=== PATIENT | female | born 1990 | race Caucasian/White ===

== ENCOUNTER 2019-12-23 15:19 | Outpatient (RCR) | payer OTHER, SELFPAY | END 2020-03-20 23:59 | disposition home or self-care (01) | LOC: ANHLAB 15:19 | PROVIDERS: PCP Family Medicine; Visit Provider Obstetrics & Gynecology | DX: O20.0 Threatened abortion (principal); Z3A.00 Weeks of gestation of pregnancy not specified | CPT/HCPCS: 36415; 84702 ==

== ENCOUNTER 2020-08-17 15:32 | Outpatient (RCR) | payer OTHER, SELFPAY ==
[2020-07-13 08:56] VITALS: BP 116/70; PULSE 85
[2020-08-10 08:47] VITALS: BP 107/64; PULSE 93
[2020-08-17 16:17] VITALS: BP 120/67; PULSE 67
== END 2020-08-24 07:28 | disposition home or self-care (01) ==
LOC: ANHOBOP 15:32
PROVIDERS: PCP Family Medicine; Visit Provider Obstetrics & Gynecology
DX: O99.213 Obesity complicating pregnancy, third trimester (principal); E66.9 Obesity, unspecified; Z3A.34 34 weeks gestation of pregnancy; Z3A.38 38 weeks gestation of pregnancy; Z3A.39 39 weeks gestation of pregnancy
CPT/HCPCS: 59025

== ENCOUNTER 2020-08-22 19:27 | Inpatient (IN) | payer OTHER, SELFPAY ==
[2020-08-22] VITALS (10 sets, daily range): BP systolic 109–129; BP diastolic 68–80; PULSE 70–99; RESP 16; TEMP 36.3–36.9
--- OUTSIDE RECORDS SUMMARY | 2020-08-22 19:57 | XMS_ITS | Encounter Summary ---
:1990 Author Care Team Providers Name Role Phone Jhon Orourke MD Primary Care Provider [phone] Reason for Visit None recorded. Assessment and Plan 1. Maternal obesity complicating , childbirth and the puerperium, antepartum ? non-stress test Discussion Note: None recorded.Patient educational handouts: No information available. Plan of Care Reminders Provider Appointments Nst Nst, , EQ UIP 08/24/2020 8:30AM ? Nst Nst, , EQUI P 08/28/2020 9:30AM ? U/s Ob Ultrasound , TECH Growth 08/28/2020 10:00AM ? Ob Routine Robina Cabral 08/28/2020 MD [place] 10:45AM Lab None ? ? recorded. Referral None ? ? recorded. Procedures None ? ? recorded. Surgeries None ? ? recorded. Imaging Non-stress [place] Test 07/27/2020 Medications Name Start Date ? ? citalopram 20 mg tablet ? TAKE 1 TABLET BY MOUTH ONCE DAILY levothyroxine ?
--- OUTSIDE RECORDS SUMMARY | 2020-08-22 19:57 | XMS_ITS | Encounter Summary ---
:1990 Author Care Team Providers Name Role Phone Jhon Orourke MD Primary Care Provider [phone] Reason for Visit None recorded. Assessment and [...] ? recorded. Imaging Non-stress [place] Test 08/03/2020 Medications Name Start Date ? ? citalopram 20 mg tablet ? TAKE 1 TABLET BY MOUTH ONCE DAILY levothyroxine ?
--- OUTSIDE RECORDS SUMMARY | 2020-08-22 19:57 | XMS_ITS | Encounter Summary ---
:1990 Author Care Team Providers Name Role Phone Jhon Orourke MD Primary Care Provider [phone] Reason for Visit OB visit Assessment and Plan 1. Hypothyroidism in ? TSH, serum or plasma 2. Maternal obesity complicating , childbirth and the puerperium, antepartum Discussion Note: None recorded.Patient educational handouts: No information available. Plan of Care Reminders Provider Appointments Nst Nst, , EQ UIP 08/24/2020 8:30AM ? Nst Nst, , EQUI P 08/28/2020 9:30AM ? U/s Ob Ultrasound , TECH Growth 08/28/2020 10:00AM ? Ob Routine Robina Montgomery, 08/28/2020 10:45AM Lab TSH, Serum Pathgr oup -PSC or Plasma 08/07/[address] [facility] ([facility] ) Referral None ? ? recorded. Procedures None ? ? recorded. Surgeries None ? ? recorded. Imaging None ? ? recorded. Medications
--- OUTSIDE RECORDS SUMMARY | 2020-08-22 19:57 | XMS_ITS | Encounter Summary ---
:1990 Author Care Team Providers Name Role Phone Jhon Orourke MD Primary Care Provider [phone] Reason for Visit OB visit 36w4d Assessment and Plan 1. Routine care Discussion Note: None recorded.Patient educational handouts: No [...] recorded. Imaging None ? ? recorded. Medications Name Start Date ? ? citalopram 20 mg tablet ? TAKE 1 TABLET BY MOUTH ONCE DAILY levothyroxine ? ? Medications Administered None recorded. Vitals Height Weight BMI Blood Pressure 5 ft 5 in
--- OUTSIDE RECORDS SUMMARY | 2020-08-22 19:57 | XMS_ITS | Encounter Summary ---
:1990 Author Care Team Providers Name Role Phone Jhon Orourke MD Primary Care Provider [phone] Reason for Visit None recorded. Assessment and [...] ? recorded. Imaging Non-stress [place] Test 07/20/2020 Medications Name Start Date ? ? citalopram 20 mg tablet ? TAKE 1 TABLET BY MOUTH ONCE DAILY levothyroxine ?
--- OUTSIDE RECORDS SUMMARY | 2020-08-22 19:57 | XMS_ITS | Encounter Summary ---
:1990 Author Care Team Providers Name Role Phone Jhon Orourke MD Primary Care Provider [phone] Reason for Visit None recorded. Assessment and [...] ? recorded. Imaging Non-stress [place] Test 07/24/2020 Medications Name Start Date ? ? citalopram 20 mg tablet ? TAKE 1 TABLET BY MOUTH ONCE DAILY levothyroxine ?
--- OUTSIDE RECORDS SUMMARY | 2020-08-22 19:57 | XMS_ITS | Encounter Summary ---
:1990 Author Care Team Providers Name Role Phone Jhon Orourke MD Primary Care Provider [phone] Reason for Visit OB visit 34w3d Assessment and Plan 1. Routine care Discussion [...]
--- OUTSIDE RECORDS SUMMARY | 2020-08-22 19:57 | XMS_ITS | Encounter Summary ---
:1990 Author Care Team Providers Name Role Phone Jhon Orourke MD Primary Care Provider [phone] Reason for Visit Patient is here for NST [id number] EDC 08/24 Assessment and Plan 1. Maternal obesity complicating [...] ? recorded. Imaging Non-stress [place] Test 08/07/2020 Medications Name Start Date ? ? citalopram 20 mg tablet ? TAKE 1 TABLET BY MOUTH ONCE DAILY levothyroxine
--- OUTSIDE RECORDS SUMMARY | 2020-08-22 19:57 | XMS_ITS | Encounter Summary ---
:1990 Author Care Team Providers Name Role Phone Jhon Orourke MD Primary Care Provider [phone] Reason for Visit None recorded. Assessment and [...] ? recorded. Imaging Non-stress [place] Test 07/31/2020 Medications Name Start Date ? ? citalopram 20 mg tablet ? TAKE 1 TABLET BY MOUTH ONCE DAILY levothyroxine ?
--- OUTSIDE RECORDS SUMMARY | 2020-08-22 19:57 | XMS_ITS | Encounter Summary ---
:1990 Author Care Team Providers Name Role Phone Jhon Orourke MD Primary Care Provider [phone] Reason for Visit OB visit 39w4d Assessment and Plan 1. Routine care Discussion [...]
--- OUTSIDE RECORDS SUMMARY | 2020-08-22 19:57 | XMS_ITS | Encounter Summary ---
:1990 Author Care Team Providers Name Role Phone Jhon Orourke MD Primary Care Provider [phone] Reason for Visit OB visit Assessment and Plan 1. Routine care 2. Maternal obesity complicating , childbirth and [...]
--- OUTSIDE RECORDS SUMMARY | 2020-08-22 19:57 | XMS_ITS | Encounter Summary ---
:1990 Author Care Team Providers Name Role Phone Jhon Orourke MD Primary Care Provider [phone] Reason for Visit None recorded. Assessment and Plan 1. Maternal obesity complicating , childbirth and the puerperium, antepartum ? US, obstetric, follow-up Discussion Note: None recorded.Patient educational handouts: No [...] recorded. Surgeries None ? ? recorded. Imaging US, [place] [facility], Follow-up 07/31/2020 Medications Name Start Date ? ? citalopram 20 mg tablet ? TAKE 1 TABLET BY MOUTH ONCE DAILY levothyroxine ?
--- OUTSIDE RECORDS SUMMARY | 2020-08-22 19:57 | XMS_ITS | Encounter Summary ---
:1990 Author Care Team Providers Name Role Phone Jhon Orourke MD Primary Care Provider [phone] Reason for Visit None recorded. Assessment and [...] ? recorded. Imaging Non-stress [place] Test 08/14/2020 Medications Name Start Date ? ? citalopram 20 mg tablet ? TAKE 1 TABLET BY MOUTH ONCE DAILY levothyroxine ?
--- OUTSIDE RECORDS SUMMARY | 2020-08-22 19:57 | XMS_ITS ---
:1990 Author Care Team Providers Name Role Phone YOUSIF LUNA MD Primary Care Provider [phone] Allergies Code Code System Name Reaction Severity Status Onset NKDA ? Medications Name Status Start Date Stop Date ? ? acetaminophen 300 mg-codeine 30 mg Completed ? 02/10/2020 tablet amoxicillin 500 mg capsule Completed ? 07/17 cephalexin 500 mg capsule Completed ? 2019 citalopram Completed ? 07/03/2020 citalopram 20 mg tablet Active ? Not avai lable TAKE 1 TABLET BY MOUTH ONCE DAILY levothyroxine Active ? Not available levothyroxine 50 mcg tablet Completed ? 01/17 Active ? Not available Din-Qh-Svjmmizs 0.18 mg/0.215 mg/0.25 Completed ? 02/10/2020 mg-25 mcg tablet Problems Name Status Onset Date Source ? Active 02/10/2020 ? Procedures Date Name Performed by ? 12/30/2019 US, Obstetric, Transvaginal [place] [address] [place] [address] ([address]) 01/11/2020 US, Obstetric, [place]aginal [place] [address] ([address]) 02/10/2020 US, Obstetric, Nuchal Translucency [place]
--- OUTSIDE RECORDS SUMMARY | 2020-08-22 19:57 | XMS_ITS | Encounter Summary ---
:1990 Author Care Team Providers Name Role Phone Jhon Orourke MD Primary Care Provider [phone] Reason for Visit OB visit 38w4d Assessment and Plan 1. Routine care Discussion [...]
--- OUTSIDE RECORDS SUMMARY | 2020-08-22 19:57 | XMS_ITS | Encounter Summary ---
:1990 Author Care Team Providers Name Role Phone Jhon Orourke MD Primary Care Provider [phone] Reason for Visit None recorded. Assessment and [...] ? recorded. Imaging Non-stress [place] Test 08/21/2020 Medications Name Start Date ? ? citalopram 20 mg tablet ? TAKE 1 TABLET BY MOUTH ONCE DAILY levothyroxine ?
--- OUTSIDE RECORDS SUMMARY | 2020-08-22 19:58 | XMS_ITS | Encounter Summary ---
:1990 Author Care Team Providers Name Role Phone Jhon Orourke MD Primary Care Provider [phone] Reason for Visit OB visit Assessment and Plan 1. Maternal obesity complicating , childbirth and the puerperium, antepartum 2. Routine care Discussion Note: None recorded.Patient educational [...]
--- OUTSIDE RECORDS SUMMARY | 2020-08-22 19:58 | XMS_ITS | Encounter Summary ---
:1990 Author Care Team Providers Name Role Phone Jhon Orourke MD Primary Care Provider [phone] Reason for Visit None recorded. Assessment and [...] ? recorded. Imaging Non-stress [place] Test 07/03/2020 Medications Name Start Date ? ? citalopram 20 mg tablet ? TAKE 1 TABLET BY MOUTH ONCE DAILY levothyroxine ?
--- OUTSIDE RECORDS SUMMARY | 2020-08-22 19:58 | XMS_ITS | Encounter Summary ---
:1990 Author Care Team Providers Name Role Phone Jhon Orourke MD Primary Care Provider [phone] Reason for Visit None recorded. Assessment and [...] ? recorded. Imaging Non-stress [place] Test 07/10/2020 Medications Name Start Date ? ? citalopram 20 mg tablet ? TAKE 1 TABLET BY MOUTH ONCE DAILY levothyroxine ?
--- OUTSIDE RECORDS SUMMARY | 2020-08-22 19:58 | XMS_ITS | Encounter Summary ---
:1990 Author Care Team Providers Name Role Phone Jhon Orourke MD Primary Care Provider [phone] Reason for Visit None recorded. Assessment and [...] Surgeries None ? ? recorded. Imaging US, [facility] [place] [facility], Follow-up 07/03/2020 Medications Name Start Date ? ? citalopram 20 mg tablet ? TAKE 1 TABLET BY MOUTH ONCE DAILY levothyroxine ?
--- OUTSIDE RECORDS SUMMARY | 2020-08-22 19:58 | XMS_ITS | Encounter Summary ---
:1990 Author Care Team Providers Name Role Phone Jhon Orourke MD Primary Care Provider [phone] Reason for Visit None recorded. Assessment and [...] Surgeries None ? ? recorded. Imaging US, [place] [facility], Follow-up 05/29/2020 Medications Name Start Date ? ? citalopram 20 mg tablet ? TAKE 1 TABLET BY MOUTH ONCE DAILY levothyroxine ?
--- OUTSIDE RECORDS SUMMARY | 2020-08-22 19:58 | XMS_ITS | Encounter Summary ---
:1990 Author Care Team Providers Name Role Phone Jhon Orourke MD Primary Care Provider [phone] Reason for Visit OB visit 31wks 4days Assessment and Plan 1. Routine care Discussion [...]
--- OUTSIDE RECORDS SUMMARY | 2020-08-22 19:58 | XMS_ITS | Encounter Summary ---
:1990 Author Care Team Providers Name Role Phone Jhon Orourke MD Primary Care Provider [phone] Reason for Visit OB visit Assessment and Plan Assessment Note Patient is ___weeks . Discu ssed plan. 1. Routine care Discussion Note: None recorded.Patient [...]
--- OUTSIDE RECORDS SUMMARY | 2020-08-22 19:58 | XMS_ITS | Encounter Summary ---
:1990 Author Care Team Providers Name Role Phone Jhon Orourke MD Primary Care Provider [phone] Reason for Visit None recorded. Assessment and [...] ? recorded. Imaging Non-stress [place] Test 07/06/2020 Medications Name Start Date ? ? citalopram 20 mg tablet ? TAKE 1 TABLET BY MOUTH ONCE DAILY levothyroxine ?
--- NOTE | 2020-08-22 20:32 | WPDOBADMIT ---
Obstetrics - Admit Note Admission Note: record reviewed. No pertinent additions to the history and/or any subsequent changes in the physical findings that are not consistent with the expected course of the were found. Additions to the history and/or subsequent changes in the physical findings follow. 39.5 SROM, GBS neg. Pitocin. FHT category 1.
[2020-08-22 21:22] LABS: Basophils Percent Auto 0.3 % (0.2-1.2); Eosinophils Absolute Auto 0.1 K/mm3 (0-0.3); Eosinophils Percent Auto 1.1 % (0-4.4); Hematocrit 38.6 % (37.0-47.0); Hemoglobin 13.1 g/dL (12.0-15.0); Immature Granulocyte Absolute 0.05 K/mm3 (0.00-0.031); Immature Granulocyte Percent A 0.4 % (0-0.5); Lymphocytes Percent Auto 17.4 % (18.3-44.2); Mean Corpuscular HGB Conc 33.9 g/dl (32-36); Mean Corpuscular Hemoglobin 29.5 pg (26-34); Mean Corpuscular Volume 86.9 fl (80-100); Mean Platelet Volume 11.2 fl (7.4-10.4); Monocytes Absolute Auto 0.7 K/mm3 (0.1-0.6); Neutrophils Percent Auto 74.8 % (45.5-73.1); Platelet Count Result 251 k/mm3 (150-375); Red Blood Count 4.44 M/mm3 (4.2-5.4); Red Cell Distribution Width 13.3 % (11.5-14.5); White Blood Count 12.1 K/mm3 (4.5-10.0)
[2020-08-22] MEDS: LACTATED RINGERS 1,000 ML 125 ML IV CONT (22:27)
[2020-08-22] MEDS: OXYTOCIN 30 UNITS/NS 500 ML 30 UNITS/500 ML BAG IV CONT (22:28)
[2020-08-23] VITALS (179 sets, daily range): BP systolic 87–144; BP diastolic 38–114; PULSE 59–141; RESP 16–20; TEMP 36.7–37.2; O2SAT 76–100
--- NOTE | 2020-08-23 01:17 | WPDANESEPP ---
Anes - Eval Pre Procedure Procedure: Labor epidural Date/Time: 08/23/20 01:17 Surgeon: vanessa Preop Diagnosis: ABD PAIN WITH CONTRACTIONS Pre Op Diagnosis: Leaking fluid Patient Data Age: 30 Gender: F Height: Weight: Last Vital Signs Temp 97.4 F L 08/22/20 22:25 Pulse 70 08/23/20 01:01 Resp 16 08/22/20 20:00 BP 120/68 08/23/20 01:01 Allergies Allergy/AdvReac Type Severity Reaction Status Date / Time No Known Allergies Allergy Verified 07/24/20 12:31 Home Medications Medication Instructions Recorded Confirmed Type PNV cmb#95-ferrous fumarate-FA 1 tablet PO DAILY 07/24/20 07/24/20 History [] citalopram 20 mg PO DAILY 07/24/20 07/24/20 History levothyroxine 50 mcg PO DAILY 07/24/20 07/24/20 History Laboratory Tests 08/22/20 08/22/20 08/22/20 21:15 21:15 21:15 WBC 12.1 K/mm3 H K/mm3 (4.5-10.0) RBC 4.44 M/mm3 M/mm3 (4.2-5.4) Hgb 13.1 g/dL g/dL (12.0-15.0) Hct 38.6 % % (37.0-47.0) MCV 86.9 fl fl (80-100) MCH 29.5 pg pg (26-34) MCHC 33.9 g/dl g/dl (32-36) RDW 13.3 % % (11.5-14.5) Plt Count 251 k/mm3 k/mm3 (150-375) MPV 11.2 fl H fl (7.4-10.4) Immature Gran % (Auto) 0.4 % % (0-0.5) Neut % (Auto) 74.8 % H % (45.5-73.1) Lymph % (Auto) 17.4 % L % (18.3-44.2) [place] % (Auto) 6.0 % % (2.6-8.5) Eos % (Auto) 1.1 % % (0-4.4) Baso % (Auto) 0.3 % % (0.2-1.2) Lymph # (Auto) 2.10 K/mm3 K/mm3 (0.9-3.2) [place] # (Auto) 0.7 K/mm3 H K/mm3 (0.1-0.6) Eos # (Auto) 0.1 K/mm3 K/mm3 (0-0.3) Baso # (Auto) 0.0 K/mm3 K/mm3 (0.0-0.1) Abs Immat Gran (auto) 0.05 K/mm3 H K/mm3 (0.00-0.031) Absolute Neuts (auto) 9.0 K/mm3 H K/mm3 (1.3-6.7) Absolute Nucleated RBC 0.0 K/mm3 K/mm3 (0.0-0.012) Nucleated RBC % 0.0 % % (0.0-0.2) RPR Pending Blood Type O Positive Antibody Screen Negative Patient hx anesthesia problems: none Family hx anesthesia problems: none PMFSH Past Medical History Medical History Adult hypothyroidism Anxiety and depression IBS (irritable bowel syndrome) Morbid obesity and not yet delivered Family History Family History Mother Diabetes mellitus Father Hypothyroidism Social History Social History Smoking status: Never smoker Substance use: never Gender identity (if verbalized by the patient): Female Spiritual care concerns: No Exam Day of Procedure 08/23/20 01:17 Patient weight: morbidly obese Airway: Mallampati scale class II Neurological: alert and oriented
[2020-08-23] MEDS: LACTATED RINGERS 1,000 ML 125 ML IV CONT ×2 (03:50→11:04)
[2020-08-23 07:05] LABS: Rapid Plasma Reagin Non-Reactive (NonReactive)
--- NOTE | 2020-08-23 07:33 | PM.OBPNLAB ---
Pain Control Date/time seen: 08/23/20 07:33 pt comfortable, anticipate vaginal delivery
[2020-08-23] MEDS: SODIUM CHLORIDE 0.9% IV 300 ML 600 ML I-UTERINE (09:08)
[2020-08-23] MEDS: SODIUM CHLORIDE 0.9% IV 1,000 ML 600 ML (09:30)
[2020-08-23] MEDS: OXYTOCIN 10 UNITS/ML VIAL 30 UNITS (12:30)
[2020-08-23] MEDS: miSOPROStol 200 MCG TABLET 800 MCG (12:45)
--- NOTE | 2020-08-23 13:13 | PM.OBPRVD ---
OB - Delivery Note Procedure Delivery date: 08/23/20 Procedure: vaginal delivery Intrapartal events: None Induction method: AROM and per pitocin protocol Delivery monitor: external FHT and internal uterine Route of delivery: Laceration Description: Perineal - 2nd Degree Delivery repair: vicryl Specimen: No Quantitative Blood Loss (ml): 642 Anesthesia type: Epidural Disposition: other () Narrative: mother and baby in stable condition Baby Date of : 08/23/20 Time of : 12:23 Weeks of gestation at delivery: 39 gender: Female Weight (pounds): 8 Weight (ounces): 0 presentation: vertex position: Left Occiput Anterior Placenta delivery description: Spontaneous cord vessel description: 3 Vessels and Clamped/Cut score one minute: 8 score five minutes: 9
[2020-08-23] MEDS: IBUPROFEN 600 MG TABLET PO ×2 (13:42→20:29)
[2020-08-23] MEDS: BENZOCAINE 20% AER SPR (*SP) 56 GM CAN 1 SPRAY TOPICAL (13:43)
[2020-08-23] MEDS: WITCH HAZEL 40 PADS 1 PAD TOPICAL (13:43)
[2020-08-24 05:04] LABS: Hematocrit 33.1 % (37.0-47.0); Hemoglobin 11.2 g/dL (12.0-15.0)
[2020-08-24] MEDS: IBUPROFEN 600 MG TABLET PO ×3 (05:13→19:53)
[2020-08-24 08:00] VITALS: BP 113/76; BP 113/78; PULSE 69; PULSE 83; RESP 18; RESP 20; TEMP 36.3; O2SAT 96
[2020-08-24] MEDS: BENZOCAINE 20% AER SPR (*SP) 56 GM CAN 1 SPRAY TOPICAL (08:28)
[2020-08-24] MEDS: MULTIVIT/MIN/PREN/FOL AC/IRON TABLET 1 TAB PO (08:29)
[2020-08-24] MEDS: DOCUSATE SODIUM 100 MG CAPSULE PO ×2 (08:29→17:26)
[2020-08-24] MEDS: LANOLIN (LANSINOH) 7.5 GM CREAM 1 APPLIC TOPICAL (08:29)
[2020-08-24] MEDS: LEVOTHYROXINE SODIUM 50 MCG TABLET PO (08:29)
--- NOTE | 2020-08-24 10:31 | WPDANLDPN2 ---
Anes-Prog Note L&D Date/Time: 08/24/20 10:31 Comfortable throughout: labor and delivery Neuraxial method: epidural Epidural/Spinal procedure site: clean & non-tender Neuro status: Neuro function grossly intact. Cardiovascular status: normal Respiratory status: normal Airway patency: baseline Mental status: baseline Post-Op hydration status: normal Vital Signs: Last Vital Signs Temp 36.9 C 08/23/20 18:55 Pulse 83 08/23/20 18:55 Resp 20 08/23/20 18:55 BP 131/56 L 08/23/20 18:55 Pulse Ox 96 08/23/20 18:55 Pain score (VAS): 0 I/O: Intake & Output 08/23/20 08/24/20 08/24/20 23:59 07:59 15:59 Output Total 87 Balance -87 Post-procedural complaints: none Patient feedback: Patient satisfied with anesthetic care.
--- NOTE | 2020-08-24 11:18 | PC.NURSE ---
Consulted with patient, reviewed infant feeding cues, frequencies, duration of feedings, feeding elimination flow sheet, and signs of adequate intake. Demonstrated stimulation techniques to wake infant for feeding. Assisted with infant to breast. Reviewed positioning/alignment, holding breast and asymmetrical latch on. Infant was able to latch correctly. Infant nursed sleepily, occasional swallowing noted. Mom states she had just fed 15mls of breastmilk before putting to breast. Encouraged mom to call for next feeding and to supplement after feeding baby at the breast. Reviewed signs of a correct latch, effective nursing and suck swallow ratio. Infant was able to maintain latch without discomfort to mother with using nipple shield. Nipple care reviewed. Instructed mother to call out for RN assistance if she is unable to latch for feeding or she has discomfort with nursing. Instructed feeding should be initiated three hours from start of last feeding or if feeding cues are noted before. Mother voiced understanding of information shared.
--- NOTE | 2020-08-24 11:20 | PC.NURSE ---
While assessing breastfeed noted that 's legs were shaking. Parents state that this has been occurring. Infant taken out to be assessed by primary RN.
[2020-08-24] MEDS: WITCH HAZEL 40 PADS 1 PAD TOPICAL (17:26)
[2020-08-24 20:50] VITALS: BP 113/62; PULSE 72; RESP 15; TEMP 36.9; O2SAT 97
--- NOTE | 2020-08-25 07:37 | P.PNOB_ITS ---
OB - PN: Subj Subjective Date/time seen: 08/25/20 07:37 Patient comments: no complaints baby status: doing well OB - PN: Obj Data Labs CBC & Chem 7: 08/24/20 03:54 OB - PN A/P Plan day: 2 Plan: routine care and discharge home Time Spent With Patient Time: Total time spent is greater than 50% in coordination of care (as documented) at patient's floor/unit and/or counseling patient: Review of Systems Review of Systems: All systems reviewed & are unremarkable except as noted in HPI and below Constitutional: Constitutional: Reports as per HPI Exam 2 Const: General: cooperative Nutritional Appearance: average body habitus Orientation/consciousness: patient oriented x3 Psych: Affect: normal affect Attitude: cooperative Thought content: Yes Normal thought content present Insight: Good insight present (Psych) Judgement: Good judgement present (Psych)
--- NOTE | 2020-08-25 07:39 | P.DS_ITS ---
DS: Admitting Diagnosis Admitting Diagnosis Admitting Diagnosis: labor OB - DS: Summary OB Procedures : None OB Procedures Intrapartum: Spontaneous Vag Delivery OB Procedures: : None Time Spent with Patient Time attestation: Total time spent providing and/or coordinating discharge services: Discharge Plan Discharge Attending physician on discharge: Yasmany Montgomery Discharging Clinician: Malissa Majano Patient Disposition: Home, Self-Care Activity: pelvic rest Diet: regular Patient Instructions: Antibiotic Form Stand Alone Forms: General Discharge Information Follow-up/Referrals: Malissa Majano CNM [Certified Nurse Civil Engineering Project Designer] - 4 Weeks Discharge Medications: Continued citalopram 20 mg Tablet 20 mg PO DAILY RF: 0 levothyroxine 50 mcg Tablet 50 mcg PO DAILY RF: 0 PNV cmb#95-ferrous fumarate-FA [] 28 mg iron- 800 mcg Tablet 1 tablet PO DAILY RF: 0 Date of admission: 08/22/20 19:27 Primary Care Provider: Sharad,Jhon [place] Admitting Provider: Yasmany Montgomery Attending physician on admission: Yasmany Montgomery Condition: Stable
[2020-08-25] MEDS: LEVOTHYROXINE SODIUM 50 MCG TABLET PO (07:53)
[2020-08-25] MEDS: MULTIVIT/MIN/PREN/FOL AC/IRON TABLET 1 TAB PO (07:53)
[2020-08-25] MEDS: DOCUSATE SODIUM 100 MG CAPSULE PO (07:53)
--- NOTE | 2020-08-25 07:55 | PC.NURSE ---
Patient viewed the discharge video Mother & Baby Care, The First Two Weeks . Patient was given the opportunity and encouraged to ask questions. Patient verbalized understanding of information shared and has been given the mother/baby guide for home reference.
[2020-08-25 08:05] VITALS: BP 113/58; PULSE 75; RESP 16; TEMP 36.8; O2SAT 100
[2020-08-26 12:01] VITALS: BP 117/78; PULSE 79; RESP 20; TEMP 36.9; O2SAT 100
== END 2020-08-25 13:55 | disposition home or self-care (01) | DRG 807 ==
LOC: ANHLDR 08-23 03:27 → ANHOB2 08-23 16:08
PROVIDERS: Advanced Practice Midwife; Admitting Provider Obstetrics & Gynecology; PCP Family Medicine; Visit Provider Obstetrics & Gynecology
DX: O76 Abnormality in fetal heart rate and rhythm complicating labor and delivery (principal); Z37.0 Single live birth; O70.1 Second degree perineal laceration during delivery; Z3A.39 39 weeks gestation of pregnancy
CPT/HCPCS: 36415; 85014; 85018; 85025; 86592; 86850; 86900; 86901; A9270; J2590; J2795; J7030; J7120

== ENCOUNTER 2021-10-31 11:25 | Outpatient (CLI) | payer OTHER, SELFPAY ==
[2021-10-31 12:34] LABS: Beta HCG Quantitative < 2.39 mIU/ML
== END 2021-10-31 11:26 | disposition home or self-care (01) ==
LOC: ANHLAB 11:31
PROVIDERS: PCP Family Medicine; Visit Provider Obstetrics & Gynecology
DX: O20.0 Threatened abortion (principal); Z3A.00 Weeks of gestation of pregnancy not specified
CPT/HCPCS: 36415; 84702